=== PATIENT | male | born 1970 | race Caucasian/White ===

== ENCOUNTER 2024-12-19 16:10 | Emergency (ER) | payer OTHER, SELFPAY ==
[2024-12-19] MEDS: SODIUM BICARB 8.4% 50ML SYRINGE (CRASH CART) 50 MEQ IV (16:10)
[2024-12-19] MEDS: EPINEPHrine 0.1 MG/ML 10ML SYRINGE (CRASH CART) 1 MG IV (16:10)
[2024-12-19 16:15] VITALS: RESP 0; O2SAT 0; BMI 29.5
--- NOTE | 2024-12-19 16:17 | ED_ITS ---
Discharge Plan Clinical Impressions Clinical Impression: Cardiopulmonary arrest Discharge ED Provider: Miles Caldwell Adult HPI General Stated complaint: code Time Seen by Provider: 12/19/24 16:17 Mode of Arrival: EMS Source of Information: EMS History of Present Illness HPI narrative: Abram Diop is a 54y male who presents to the ED as a code blue. Per EMS, they were called out to the patient's residents for chest pain. They state that he walked out to the ambulance and as soon as he got to the ambulance they said that he had seizure-like activity and then noticed he didn't have a pulse. CPR was initiated. Patient was reportedly in VTACH during the entire transport and received 8 defibrillations and 4 rounds of Epinephrine. Patient had an IGEL placed. Patient arrived pulseless. [facility] Disclaimer: The information contained in this section may have been updated after the patient was seen, as this information can be updated by other users. Social History Smoking Status: Smoker, status unknown alcohol intake: never current occupational status: other details: Unknown Travel in the last 8 weeks?: None ROS Obtained: Yes Systems reviewed as appropriate & no additional complaints except as documented Physical Exam General General appearance: other (GCS of 3T) Eye Eye exam: Present other (4mm and nonreactive pupils bilaterally) Chest Chest inspection: Present symmetric chest wall rise Respiratory Respiratory exam: Present other (Receiving bag valve ventilation via Igel device) Cardiovascular Cardiovascular exam: Present other (Pulseless) Extremities Exam Extremities exam: Present other (Right tibial intraosseous device in place) Neurological Exam Neurological exam: Present other (GCS 3 T) Skin Skin exam: Present other (Pale) Medical Decision Making Medical Records Screening: Per USPSTF and CDC recommendations, given the prevalence of disease in our region, it is our hospital?s policy to screen for HIV and viral Hepatitis for all patients aged 18 and over and those with ongoing risk factors. [facility] Inquiry Pt receiving controlled substance: No Lab Data Lab Results 12/19/24 16:05: VBG pH 6.77 L, VBG pCO2 88.5 H, VBG pO2 32.2, VBG HCO3 12.5 L, VBG Total CO2 15.2 L, VBG O2 Saturation 33.4 L, VBG Base Excess -22.5 L, VBG Lactic Acid 12.9 H Orders (Tests/Meds): ORDERS Category Date Time Status VBG [Venous Blood Gas] Stat RT 12/19/24 16:05 Completed Medical Decision Narrative: Abram Diop is a 54y male who presents to the ED as a code blue. Per EMS, they were called out to the patient's residents for chest pain. They state that he walked out to the ambulance and as soon as he got to the ambulance they said that he had seizure-like activity and then noticed he didn't have a pulse. CPR was initiated. Patient was reportedly in VTACH during the entire transport and received 8 defibrillations and 4 rounds of Epinephrine. Patient had an IGEL plac ed. Patient arrived pulseless. On arrival, patient was moved from ambulance stretcher to hospital bed stretcher. Chest compressions were resumed. Ventilations were continued with [id number] ventilation. On initial pulse check, patient is pulseless and was PEA on the monitor. No shock was given. Patient did receive a dose of bicarb as well as epinephrine. Per EMS, upon arrival he had been pulseless for approximately 1 hour. A [id number] VBG was obtained. Bedside cardiac and lung ultrasound was performed. No evidence of pericardial effusion and lung sliding is present bilaterally. This demonstrated significant acidosis with pH of 6.768, pCO2 elevated at 88.5, bicarb low at 12.5, lactate severely elevated at 12.94. Potassium very mildly elevated at 5.27, sodium normal at 144. Patient underwent several rounds of chest compressions and pulse checks and was asystole on the last 2. Given no identifiable reversible causes and the fact the patient had been down for approximately 1 hour and 15 minutes without return of spontaneous circulation with significant acidosis, it is felt that continuing resuscitative efforts are futile. Patient's pupils are 4 mm and nonreactive. Time of was called at 1610. No family is present at this time. EMS states that they believe he is alone I do not know of any contact information for the patient. Critical Care Critical Care Time Critical Care Time: Yes Attestation: On , the high probability of a clinically significant, sudden or life threatening deterioration of the following system(s) required my full and direct attention, intervention and personal management. The time I documented below is in addition to time spent performing reported procedures but includes the following listed in this critical care notation. Total Time Total Critical Care Time: 35
[2024-12-19 16:20] LABS: Lactate Venous 12.9 mmol/L (0.4-2.0); VBG HCO3 12.5 mmol/L (23-30); VBG PCO2 88.5 mmol/L (35-51); VBG PH 6.77 mmol/L (7.31-7.41); VBG PO2 32.2 mmol/L (28-40)
--- NOTE | 2024-12-19 16:31 | EXP.DEATH.NO ---
Pronouncement Note Date and Time of Date of : 12/19/24 Time of : 16:10 PCOD Preliminary cause of : Cardiopulmonary arrest Additional Data Confirmation of : no pulse Family: not available Was code activated?: Yes Autopsy should be considered if:: Unknown or unanticipated medical complications Cause is not known with certainty on clinical grounds Would allay concerns of the public/family regarding Unexplained/unexpected apparently natural and not subject to a forensic medical jurisdiction DOA Within 24 hours of admission Sustained or apparently sustained injury while in the hospital Result of high risk, infectious and contagious disease Obstetric and pediatric arising from environmental or occupational hazard Unexplained/unexpected from dental, medical, or surgical diagnostic procedures and/or therapies Would disclose a known or suspected illness which also may have a bearing on survivors or recipients of transplanted organs Autopsy requested?: No Refused by family
[2024-12-19 16:35] VITALS: BMI 29.5
--- NOTE | 2024-12-19 16:49 | PC.NURSE ---
1601: Pulse check- no pulse, PEA, resume compressions 1603: pulse check- no pulse, PEA, resume compressions 1605: pulse check- no pulse, asystole, resume compressions 1608: pulse check- no pulse, asystole, resume compressions 1610: pulse check- no pulse, asystole, resume compressions 1610: Time of - pronounced by Dr. Caldwell
--- NOTE | 2024-12-19 16:58 | PC.NURSE ---
Spoke with franchise consultant Analia Esparza. She states she will be to the ER shortly.
--- NOTE | 2024-12-19 17:06 | PC.NURSE ---
Viv Acevedo is the Girlfriend of the pt and was told by [facility] that she needed to call the hospital. Dr Caldwell was speaking with her at this time. We had previously called [facility] for information since that is where the call originated from in [id number]. [facility] sent an officer to track down Ms Acevedo.
--- NOTE | 2024-12-19 17:27 | PC.NURSE ---
[employer] notified at 1725- states do not release to home, can [place] [facility] but not [place] pending case review.
--- NOTE | 2024-12-19 17:44 | PC.NURSE ---
Ida Esparza, transactional paralegal at bedside.
--- OUTSIDE RECORDS SUMMARY | 2024-12-19 17:51 | XMS_ITS | Clinical Summary ---
Author Organization [facility] [place] [id number] Care Team Providers Care Medical Device Engineer Name Role Phone Unavailable Primary Care Provider Unavailabl e Social History Tobacco Use Types Packs/Day Years Used Date Smoking Tobacco: Never Assessed Sex and Gender Information Value Date Recorded Sex Assigned at Not on file Legal Sex Male 2:35 PM EDT Gender Identity Not on file Sexual Orientation Not on file Plan of Treatment Health Maintenance Due Date Last Done Comments Annual Wellness Exam 1972 DTaP/TDaP/Td (1 - Tdap) 1988 Hepatitis B Vaccine (1 of 3 - 19+ 3-dose series) 1988 Cologuard 2014 Colon Cancer Screening 2014 Colonoscopy 2014 FIT 2014 Sigmoidoscopy 2014 Virtual Colonography 2014 Pneumococcal Vaccine 50+ (1 of 1 - PCV) 11/11/2019 Zoster (1 of 2) 11/11/2019 COVID-19 Vaccine (1 - 2024-2 6 season) 2024 Influenza Vaccine (#1) 2024 Meningococcal B Vaccine Aged Out No l onger eligible based on patient's age to complete this topic
--- NOTE | 2024-12-19 18:15 | PC.NURSE ---
Called [employer], updated on details of case, including patient history of PTSD from [place] and history of drug and alcohol abuse. Advised that assistant store manager trainee is taking to morgue to hold body until patient family can make a decision. [employer] rep states she will update his case file.
[2024-12-19 20:20] LABS: Reflex Lactic Add Lactic Reflex
== END 2024-12-19 18:28 | disposition expired ==
PROVIDERS: Emergency Provider Student in an Organized Health Care Education/Training Program
DX: I46.9 Cardiac arrest, cause unspecified (principal)
CPT/HCPCS: 82803; 92950; 96374; 96375; 99285; 99291; C1751; J0169